=== PATIENT | female | born 1955 | race African-American/Black ===

== ENCOUNTER 2017-05-29 01:45 | Emergency (ER) | payer OTHER ==
[~2017-05-29] VITALS: Ht 162.6 cm; Wt 86.0 kg
[2017-05-29] MEDS ORDERED: IPRATROPIUM BROMIDE (0.02%) 0.5MG/2.5ML NEB HHN STA (02:19)
[2017-05-29] MEDS ORDERED: ALBUTEROL (0.083%) 2.5MG/3ML NEB HHN STA (02:19)
[2017-05-29] MEDS ORDERED: NITROGLYCERIN 0.4MG TABLET SL SL PRN (02:30)
[2017-05-29] MEDS ORDERED: ASPIRIN 81MG TABLET PO ONE (02:30)
[2017-05-29 02:47] LABS: BASOPHILS % 0.2 % (0.0-2.0); EOSINOPHILS % 0.7 % (0.0-5.0); HEMATOCRIT. 35.8 % (36.0-48.0); HEMOGLOBIN. 11.7 g/dL (12.0-16.0); LYMPHOCYTES % 9.2 % (20.0-50.0); MEAN CORPUSCULAR HEMOGLOBIN 32.3 pg (28.0-32.0); MEAN CORPUSCULAR VOLUME 98.4 fL (81.0-99.0); MEAN PLATELET VOLUME 7.8 fl (7.4-10.4); NEUTROPHILS % 83.9 % (40.0-76.0); PLATELET 226 x1000/uL (130-400); RED BLOOD CELL COUNT 3.63 mill/uL (4.2-5.4)
[2017-05-29 02:51] LABS: PROTHROMBIN TIME 10.5 sec (9.4-11.6)
[2017-05-29 02:54] LABS: CHLORIDE 103 mEq/L (98-107)
[2017-05-29 03:00] LABS: TROPONIN I < 0.02 ng/mL (0.00-0.04)
[2017-05-29] MEDS ORDERED: ENOXAPARIN 100MG/ML SYR SUBCUT NR (04:15)
[2017-05-29 11:56] VITALS: BP 133/81
== END 2017-05-29 12:29 | disposition left against medical advice (07) ==
LOC: ER 01:45 → EDBEDREQ 04:08 → ER 12:29 → CANBEDREQ 14:11
DX: R07.9 Chest pain, unspecified (principal); D64.9 Anemia, unspecified; J40 Bronchitis, not specified as acute or chronic; Z98.890 Other specified postprocedural states
CPT/HCPCS: 36415; 71045; 80053; 83880; 84484; 85025; 85610; 87804; 93005; 96372; 99285; J1650; J7611; Z7610